=== PATIENT | female | born 1965 | race Caucasian/White ===

== ENCOUNTER 2018-04-12 14:16 | Emergency (ER) | payer MEDICAID ==
[~2018-04-12] VITALS: Ht 165.1 cm; Wt 65.9 kg
[2018-04-12] MEDS ORDERED: CYAN100099 PO (14:39)
[2018-04-12] MEDS ORDERED: DEXAMETHASONE SOD PHOS 4 MG/ML 5 ML VIAL IM ONE (16:15)
[2018-04-12] MEDS ORDERED: ACETAMINOPHEN 500 MG TABLET PO ONE (16:15)
[2018-04-12 17:08] LABS: APPEARANCE,URINE CLEAR (CLEAR); BILIRUBIN,URINE NEGATIVE (NEGATIVE); GLUCOSE, URINE (UA) NEGATIVE (NEGATIVE); KETONES,URINE NEGATIVE (NEGATIVE); LEUKOCYTE ESTERASE ,URINE NEGATIVE (NEGATIVE); NITRATE,URINE NEGATIVE (NEGATIVE); OCCULT BLOOD,URINE SMALL (NEGATIVE); PH,URINE 6.5 (5.0-8.0); PROTEIN,URINE NEGATIVE (NEGATIVE); UROBILINOGEN,URINE 0.2 mg/dL (<=1.0)
[2018-04-12 17:27] LABS: WBC,URINE None Seen /HPF (0-5)
[2018-04-12 17:28] LABS: BACTERIA,URINE Rare /HPF (None Seen); SQUAMOUS EPITHELIAL CELL,UR Few /LPF (None Seen)
[2018-04-12 17:35] VITALS: BP 138/88
== END 2018-04-12 17:44 | disposition home or self-care (01) ==
LOC: EMS 14:18
DX: J02.9 Acute pharyngitis, unspecified (principal); Z88.6 Allergy status to analgesic agent
CPT/HCPCS: 81001; 96372; 99283; J1100

== ENCOUNTER 2018-04-30 20:34 | Emergency (ER) | payer SELFPAY ==
[~2018-04-30] VITALS: Ht 165.1 cm; Wt 61.5 kg
[~2018-04-30 20:34] MED LIST: CYAN100099 PO
[2018-04-30] MEDS ORDERED: IBUP-2071 PO (21:07)
[2018-04-30] MEDS ORDERED: SODIUM CHLORIDE 0.9% 500 ML IV ONE (21:45)
[2018-04-30 21:54] LABS: BASOPHILS % (AUTO) 0.9 % (0.0-2.0); EOSINOPHILS % (AUTO) 1.8 % (1.0-6.0); HEMATOCRIT 33.8 % (36-46); HEMOGLOBIN 11.6 g/dL (12.0-16.0); LYMPHOCYTES # (AUTO) 2.6 K/uL (1.0-4.8); LYMPHOCYTES % (AUTO) 38.6 % (22.0-44.0); MEAN CORPUSCULAR HEMOGLOBIN 29.9 pg (26.0-34.0); MEAN CORPUSCULAR HGB CONC 34.3 G/dL (31.0-37.0); MEAN CORPUSCULAR VOLUME 87 fL (80-100); MONOCYTES # (AUTO) 0.6 K/uL (0.1-1.0); MONOCYTES % (AUTO) 8.7 % (2.0-9.0); NEUTROPHILS # (AUTO) 3.3 K/uL (1.8-7.7); PLATELET COUNT (AUTO) 316 K/uL (150-450); RED BLOOD CELL COUNT(AUTO) 3.87 MIL/uL (4.00-5.20); RED CELL DISTRIBUTION WIDTH 16.2 % (11.5-14.5)
[2018-04-30 21:56] LABS: APPEARANCE,URINE CLOUDY (CLEAR); BILIRUBIN,URINE NEGATIVE (NEGATIVE); GLUCOSE, URINE (UA) NEGATIVE (NEGATIVE); KETONES,URINE NEGATIVE (NEGATIVE); LEUKOCYTE ESTERASE ,URINE NEGATIVE (NEGATIVE); NITRATE,URINE NEGATIVE (NEGATIVE); OCCULT BLOOD,URINE MODERATE (NEGATIVE); PH,URINE 6.5 (5.0-8.0); PROTEIN,URINE NEGATIVE (NEGATIVE); UROBILINOGEN,URINE 0.2 mg/dL (<=1.0)
[2018-04-30] MEDS ORDERED: KETOROLAC TROMETHAMINE 30 MG/ML VIAL IVP ONE (22:00)
[2018-04-30 22:04] LABS: ANION GAP 5 mmol/L (8-16); CALCIUM, TOTAL 8.4 mg/dL (8.8-10.5); CARBON DIOXIDE 29 mmol/L (22-29); CHLORIDE 105 mmol/L (98-107); CREATININE 0.79 mg/dL (0.60-1.30); GLOMERULAR FILTR. RATE CALC > 60 mL/min (>60); GLUCOSE,RANDOM 113 mg/dL (70-110); POTASSIUM 3.7 mmol/L (3.5-5.1); SODIUM SERUM 139 mmol/L (136-145); UREA NITROGEN, BLOOD 22 mg/dL (7-18)
[2018-04-30 22:05] LABS: BACTERIA,URINE Few /HPF (None Seen); SQUAMOUS EPITHELIAL CELL,UR Few /LPF (None Seen); WBC,URINE 0-2 /HPF (0-5)
[2018-04-30 22:10] LABS: ALANINE AMINOTRANSFERASE 20 U/L (12-78); ALBUMIN 3.5 g/dL (3.4-5.0); ALKALINE PHOSPHATASE 54 U/L (46-116); ASPARTATE AMINOTRANSFERASE 13 U/L (15-37); BILIRUBIN,TOTAL 0.3 mg/dL (0.1-1.0); LIPASE 197 U/L (73-393); TOTAL PROTEIN, SERUM 6.7 g/dL (6.4-8.2)
[2018-04-30 23:32] VITALS: BP 131/72
== END 2018-04-30 23:38 | disposition home or self-care (01) ==
LOC: EMS 20:34
DX: S39.011A Strain of muscle, fascia and tendon of abdomen, initial encounter (principal); N39.0 Urinary tract infection, site not specified; Z88.6 Allergy status to analgesic agent; Z88.8 Allergy status to other drugs, medicaments and biological substances; X58.XXXA Exposure to other specified factors, initial encounter; Y93.89 Activity, other specified; Y92.89 Other specified places as the place of occurrence of the external cause; Y99.8 Other external cause status
CPT/HCPCS: 36415; 80053; 81001; 83690; 84484; 85025; 93005; 96360; 96374; 99285; J1885; J7040

== ENCOUNTER 2018-05-03 16:31 | Emergency (ER) | payer SELFPAY ==
[~2018-05-03] VITALS: Ht 162.6 cm; Wt 64.5 kg
[~2018-05-03 16:31] MED LIST changes: -CYAN100099 PO; +IBUP-2071 PO
[2018-05-03 17:06] VITALS: BP 127/83
[2018-05-03] MEDS ORDERED: ACYCLOVIR 200 MG CAPSULE PO ONE (17:15)
[2018-05-03] MEDS ORDERED: HYDROCODONE/ACETAMINOPHEN 5-325 MG TABLET PO ONE (17:15)
[2018-05-03] MEDS ORDERED: CEPHALEXIN MONOHYDRATE 500 MG CAPSULE PO ONE (17:15)
[2018-05-03] MEDS ORDERED: NITROFURANTOIN/NITROFURAN MAC 100 MG CAPSULE [MACROBID] PO ONE (18:00)
== END 2018-05-03 18:07 | disposition home or self-care (01) ==
LOC: EMS 16:31
DX: T14.8XXD Other injury of unspecified body region, subsequent encounter (principal); N39.0 Urinary tract infection, site not specified; R73.09 Other abnormal glucose; F41.9 Anxiety disorder, unspecified; F32.9 Major depressive disorder, single episode, unspecified; Z88.6 Allergy status to analgesic agent; Z91.038 Other insect allergy status; X58.XXXD Exposure to other specified factors, subsequent encounter; Z76.0 Encounter for issue of repeat prescription; Z87.11 Personal history of peptic ulcer disease
CPT/HCPCS: 99283

== ENCOUNTER 2018-05-22 06:07 | Emergency (ER) | payer SELFPAY ==
[~2018-05-22] VITALS: Ht 162.6 cm; Wt 68.2 kg
[2018-05-22 07:07] VITALS: BP 122/90
[2018-05-22] MEDS ORDERED: HYDROCODONE/ACETAMINOPHEN 5-325 MG TABLET PO ONE (07:15)
[2018-05-22] MEDS ORDERED: KETOROLAC TROMETHAMINE 30 MG/ML VIAL IVP ONE (07:15)
[2018-05-22 07:46] LABS: EOSINOPHILS % (AUTO) 3.4 % (1.0-6.0); HEMATOCRIT 36.4 % (36-46); HEMOGLOBIN 12.7 g/dL (12.0-16.0); LYMPHOCYTES # (AUTO) 2.1 K/uL (1.0-4.8); LYMPHOCYTES % (AUTO) 41.1 % (22.0-44.0); MEAN CORPUSCULAR HEMOGLOBIN 30.7 pg (26.0-34.0); MEAN CORPUSCULAR HGB CONC 34.9 G/dL (31.0-37.0); MEAN CORPUSCULAR VOLUME 88 fL (80-100); MONOCYTES # (AUTO) 0.4 K/uL (0.1-1.0); MONOCYTES % (AUTO) 8.8 % (2.0-9.0); NEUTROPHILS # (AUTO) 2.3 K/uL (1.8-7.7); NEUTROPHILS % (AUTO) 45.7 % (40.0-70.0); PLATELET COUNT (AUTO) 285 K/uL (150-450); RED BLOOD CELL COUNT(AUTO) 4.13 MIL/uL (4.00-5.20); RED CELL DISTRIBUTION WIDTH 16.4 % (11.5-14.5)
[2018-05-22 07:56] LABS: ANION GAP 6 mmol/L (8-16); CALCIUM, TOTAL 8.2 mg/dL (8.8-10.5); CARBON DIOXIDE 28 mmol/L (22-29); CHLORIDE 103 mmol/L (98-107); CREATININE 0.65 mg/dL (0.60-1.30); GLOMERULAR FILTR. RATE CALC > 60 mL/min (>60); GLUCOSE,RANDOM 88 mg/dL (70-110); POTASSIUM 3.8 mmol/L (3.5-5.1); SODIUM SERUM 137 mmol/L (136-145); UREA NITROGEN, BLOOD 20 mg/dL (7-18)
[2018-05-22 08:02] LABS: ALANINE AMINOTRANSFERASE 17 U/L (12-78); ALBUMIN 3.8 g/dL (3.4-5.0); ALKALINE PHOSPHATASE 48 U/L (46-116); AMPHET/METH SCREEN,URINE NEGATIVE (NEGATIVE); ASPARTATE AMINOTRANSFERASE 9 U/L (15-37); BARBITURATE SCREEN, URINE NEGATIVE (NEGATIVE); BENZODIAZEPINES SCREEN,URINE NEGATIVE (NEGATIVE); BILIRUBIN,TOTAL 0.5 mg/dL (0.1-1.0); BILIRUBIN,URINE NEGATIVE (NEGATIVE); CANNABINOID SCREEN,URINE NEGATIVE (NEGATIVE); COCAINE SCREEN,URINE NEGATIVE (NEGATIVE); GLUCOSE, URINE (UA) NEGATIVE (NEGATIVE); KETONES,URINE NEGATIVE (NEGATIVE); LEUKOCYTE ESTERASE ,URINE NEGATIVE (NEGATIVE); METHADONE SCREEN, URINE NEGATIVE (NEGATIVE); NITRATE,URINE NEGATIVE (NEGATIVE); OCCULT BLOOD,URINE MODERATE (NEGATIVE); OPIATE SCREEN,URINE NEGATIVE (NEGATIVE); PH,URINE 5.5 (5.0-8.0); PROTEIN,URINE NEGATIVE (NEGATIVE); TOTAL PROTEIN, SERUM 6.8 g/dL (6.4-8.2); UROBILINOGEN,URINE 0.2 mg/dL (<=1.0)
[2018-05-22 08:07] LABS: PHENCYCLIDINE SCREEN,URINE NEGATIVE (NEGATIVE)
[2018-05-22 08:10] LABS: APPEARANCE,URINE HAZY (CLEAR)
[2018-05-22 08:13] LABS: BACTERIA,URINE None Seen /HPF (None Seen); SQUAMOUS EPITHELIAL CELL,UR Rare /LPF (None Seen); WBC,URINE None Seen /HPF (0-5)
== END 2018-05-22 09:50 | disposition home or self-care (01) ==
LOC: EMS 06:09
DX: M25.551 Pain in right hip (principal); R10.9 Unspecified abdominal pain; Z88.6 Allergy status to analgesic agent; Z88.8 Allergy status to other drugs, medicaments and biological substances
CPT/HCPCS: 36415; 73502; 74176; 80053; 80307; 81001; 85025; 96374; 99285; J1885

== ENCOUNTER 2018-06-03 03:43 | Emergency (ER) | payer SELFPAY ==
[~2018-06-03] VITALS: Ht 162.6 cm; Wt 68.2 kg
[2018-06-03 06:16] VITALS: BP 124/70
== END 2018-06-03 06:39 | disposition home or self-care (01) ==
LOC: EMS 03:43
DX: J20.8 Acute bronchitis due to other specified organisms (principal); F41.9 Anxiety disorder, unspecified; F32.9 Major depressive disorder, single episode, unspecified; R11.0 Nausea; Z88.5 Allergy status to narcotic agent; Z91.038 Other insect allergy status
CPT/HCPCS: 99283

== ENCOUNTER 2018-07-14 05:16 | Emergency (ER) | payer MEDICAID ==
[~2018-07-14] VITALS: Ht 162.6 cm; Wt 68.2 kg
[2018-07-14 07:31] LABS: EOSINOPHILS % (AUTO) 7.2 % (1.0-6.0); HEMOGLOBIN 12.5 g/dL (12.0-16.0); LYMPHOCYTES # (AUTO) 2.1 K/uL (1.0-4.8); LYMPHOCYTES % (AUTO) 34.9 % (22.0-44.0); MEAN CORPUSCULAR HEMOGLOBIN 31.5 pg (26.0-34.0); MEAN CORPUSCULAR HGB CONC 34.8 G/dL (31.0-37.0); MEAN CORPUSCULAR VOLUME 90 fL (80-100); MONOCYTES # (AUTO) 0.6 K/uL (0.1-1.0); MONOCYTES % (AUTO) 9.7 % (2.0-9.0); NEUTROPHILS # (AUTO) 2.8 K/uL (1.8-7.7); NEUTROPHILS % (AUTO) 47.2 % (40.0-70.0); PLATELET COUNT (AUTO) 279 K/uL (150-450); RED BLOOD CELL COUNT(AUTO) 3.99 MIL/uL (4.00-5.20); RED CELL DISTRIBUTION WIDTH 14.1 % (11.5-14.5)
[2018-07-14 07:46] LABS: APPEARANCE,URINE CLEAR (CLEAR); BILIRUBIN,URINE NEGATIVE (NEGATIVE); GLUCOSE, URINE (UA) NEGATIVE (NEGATIVE); KETONES,URINE NEGATIVE (NEGATIVE); LEUKOCYTE ESTERASE ,URINE NEGATIVE (NEGATIVE); NITRATE,URINE NEGATIVE (NEGATIVE); OCCULT BLOOD,URINE LARGE (NEGATIVE); PH,URINE 5.5 (5.0-8.0); PROTEIN,URINE NEGATIVE (NEGATIVE); UROBILINOGEN,URINE 0.2 mg/dL (<=1.0)
[2018-07-14 07:48] LABS: ANION GAP 6 mmol/L (8-16); CALCIUM, TOTAL 8.4 mg/dL (8.8-10.5); CARBON DIOXIDE 26 mmol/L (22-29); CHLORIDE 108 mmol/L (98-107); CREATININE 0.58 mg/dL (0.60-1.30); GLOMERULAR FILTR. RATE CALC > 60 mL/min (>60); GLUCOSE,RANDOM 94 mg/dL (70-110); POTASSIUM 3.5 mmol/L (3.5-5.1); SODIUM SERUM 140 mmol/L (136-145); UREA NITROGEN, BLOOD 23 mg/dL (7-18)
[2018-07-14 07:54] LABS: ALANINE AMINOTRANSFERASE 15 U/L (12-78); ALBUMIN 3.6 g/dL (3.4-5.0); ALKALINE PHOSPHATASE 47 U/L (46-116); ASPARTATE AMINOTRANSFERASE 15 U/L (15-37); BILIRUBIN,TOTAL 0.6 mg/dL (0.1-1.0); TOTAL PROTEIN, SERUM 6.8 g/dL (6.4-8.2)
[2018-07-14 08:18] LABS: BACTERIA,URINE Few /HPF (None Seen); SQUAMOUS EPITHELIAL CELL,UR Moderate /LPF (None Seen)
[2018-07-14 08:34] VITALS: BP 105/71
== END 2018-07-14 09:26 | disposition left against medical advice (07) ==
LOC: EMS 05:17
DX: B34.9 Viral infection, unspecified (principal); R51 Headache; F41.9 Anxiety disorder, unspecified; F32.9 Major depressive disorder, single episode, unspecified; Z88.6 Allergy status to analgesic agent; Z91.038 Other insect allergy status
CPT/HCPCS: 87430; 93005; 99285